=== PATIENT | female | born 1950 | race Caucasian/White ===

== ENCOUNTER 2016-08-15 19:27 | Emergency (ER) | payer OTHER ==
--- NOTE | 2016-08-15 19:45 | ED GENERAL ADULT ---
History of Present Illness General Chief Complaint: General Adult Stated Complaint: CHOKING S/P Source: patient, family, old records, EMS Exam Limitations: no limitations Vital Signs & Intake/Output Vital Signs & Intake/Output Vital Signs Date Time Temp Pulse Resp B/P B/P Pulse O2 O2 Flow FiO2 Mean Ox Delivery Rate 08/15 2017 98 Room Air 08/16 1951 97.0 62 18 179/88 98 Room Air Allergies Uncoded Allergies: Allergy Other NKA Food Allergies NKA Med Allergies PCN-RASH, ZINC-RASH Triage Nurses Notes Reviewed? yes Onset: Abrupt Duration: minute(s):, better, resolved prior to arrival Timing: recent history Injury Environment: home Severity: mild, moderate Severity Numbers: 5 No Modifying Factors: none Associated Symptoms: denies HPI: 66-year-old female with history of MS presents to the ER brought in by a month after having a choking episode when she states she is having difficulty swallowing he states he is having for dinner. Patient reports he's had history of similar episodes in the past. Her son was able to help her clear the bolus impaction. However she states it was too late and the ambulance had already showed up to her house. She is otherwise without any complaints at this time she denies difficulty swallowing or breathing no chest pain fever chills. There are no other complaints. she was able to spit out the piece of steak. (CARMEN DONALD) Past History Travel History Traveled to [place] past 21 day No Medical History Any Pertinent Medical History? see below for history Neurological: multiple sclerosis Pneumonia Vaccine: 01/11/06 Influenza Vaccine: 01/11/09 Surgical History Surgical History: non-contributory Psychosocial History Who do you live with Son Services at Home None What is your primary language Nigerien Family History Hx Contributory? No (CARMEN DONALD) Review of Systems Review of Systems Constitutional: Reports: see HPI. All Other Systems: Reviewed and Negative Comments Review of systems: See HPI, All other systems negative. Constitutional, no chills no fever, no malaise HEENT: No visual changes no sore throat no congestion Cardiovascular: No chest pain , no palpitation Skin: no rashes, no change in skin Respiratory: No dyspnea no cough no sputum GI: No nausea no vomiting, no diarrhea, : No dysuria Muscle skeletal: No joint pain, no joint swelling, no back pain Neurologic: No numbness no headache Psych: No stress Heme/endocrine: No bruising Immunology: No lymphadenopathy (CARMEN DONALD) Physical Exam Physical Exam General Appearance: well developed/nourished, no apparent distress, alert, awake Comments: Well-developed well-nourished patient in no apparent distress. Head/Face: Atraumatic, no facial swelling Eyes: PERRL, EOMI, Ear:External auditory canals clear, no erythema, no FB. Nose: atraumatic.Normal inspection Throat: Moist mucous membranes.Pharynx normal. No pharyngeal erythema/exudate seen. No stridor/drooling or assymetry. No swelling or edema. Neck: Supple, no lymphadenopathy, FROM Back: FROM Cardiovascular: Regular rate and rhythms no murmurs rubs Respiratory: Chest nontender.There were no bony deformities, no asymmetry. No respiratory distress. Patient speaking in full complete sentences. Breath sounds clear to auscultation bilaterally: NO W/R/R Extremities: full range of motion Neuro: awake, alert, and oriented to person, place and time. There were no obvious focal neurologic abnormalities. Skin: Warm & dry;No appreciable rash on exposed skin Psych: Mood affect normal, normal memory normal judgment. Core Measures ACS in differential dx? No CVA/TIA Diagnosis: No Severe Sepsis Present: No Septic Shock Present: No (CARMEN DONALD) Progress Differential Diagnoses I considered the following diagnoses in my evaluation of the patient: [Status post choking aspiration pneumonia obstruction food bolus Plan of Care: Orders Procedure Date/time Status XRY-CHEST XRAY, PA AND LATERAL 08/15 1934 Active Chest x-ray ordered, case discussed with Dr. Diego agrees the plan patient is without any complaints at this time Patient is tolerating by mouth I discussed with the patient at length all of their results. I had an extensive conversation regarding need for close follow up with their primary care physician this week as well as return precautions. I answered all of their questions, they feel comfortable with the plan and follow-up care. (CARMEN DONALD) Diagnostic Imaging: Viewed by Me: Radiology Read. Discussed w/RAD: Radiology Read. Radiology Impression: PATIENT: GIANNA ALCANTAR PRESENT AGE: 66 PATIENT ACCOUNT NO: [id number] : 50 LOCATION: [facility], [place] ORDERING PHYSICIAN: TOMAS DIEGO MD SERVICE DATE: 08/15/16 EXAM TYPE: RAD - XRY-CHEST XRAY, PA AND LATERAL EXAMINATION: XR CHEST CLINICAL INFORMATION: Choking. COMPARISON: Chest radiography 05/22/2009. TECHNIQUE: 2 views of the chest were obtained. FINDINGS: No new significant abnormality is noted involving the heart, lungs, mediastinum, bony thorax or soft tissues. Slight scoliosis. IMPRESSION: No acute pulmonary pathology demonstrated DICTATED BY: KERMIT OLIVEROS MD DATE/TIME DICTATED:08/15/162005 [employer] SALES AGENT:GERTRUDE DATE/TIME TRANSCRIBED:08/15/162005 CONFIDENTIAL, DO NOT COPY WITHOUT APPROPRIATE AUTHORIZATION. <Electronically signed in Other Vendor System> SIGNED BY: KERMIT OLIVEROS MD 08/15/162010 Initial ED EKG: none (CARMEN DONALD) Departure Departure Disposition: HOME OR SELF CARE Condition: Stable Clinical Impression Primary Impression: Choking episode Referrals: ROSA NIXON (PCP/Family) Additional Instructions: follow up with your pmd this week. return to the ER with any concerns. Departure Forms: Customer Survey General Discharge Information (CARMEN DONALD) PA/RAIL LOADER Co-Sign Statement Statement: ED Attending supervision documentation- [] I saw and evaluated the patient. I have also reviewed all the pertinent lab results and diagnostic results. I agree with the findings and the plan of care as documented in the PA's/RAIL LOADER's documentation. x] I have reviewed the ED Record and agree with the PA's/RAIL LOADER's documentation. [] Additions or exceptions (if any) to the PAs/RAIL LOADER's note and plan are summarized below: [] (SREE GALLOWAY,ODILIA Cruz) Critical Care Note Critical Care Note Critical Care Time: non-applicable (CARMEN DONALD)
[2016-08-15 19:52] VITALS: BP 179/88
--- NOTE | 2016-08-15 20:11 | RADIOLOGY REPORT ---
EXAMINATION: XR CHEST CLINICAL INFORMATION: Choking. COMPARISON: Chest radiography 05/22/2009. TECHNIQUE: 2 views of the chest were obtained. FINDINGS: No new significant abnormality is noted involving the heart, lungs, mediastinum, bony thorax or soft tissues. Slight scoliosis. IMPRESSION: No acute pulmonary pathology demonstrated
== END 2016-08-15 20:20 ==
LOC: ERH 19:27
DX: T18.128A Food in esophagus causing other injury, initial encounter (principal)